=== PATIENT | female | born 1955 | race Caucasian/White ===

== ENCOUNTER → 2018-12-28 | Outpatient (CLI) | payer OTHER ==
--- NOTE | 2018-12-28 14:39 | Diagnostic Imaging Report ---
EXAM: CHEST 2 VIEWS, PA and lateral DATE: 12/28/2018 Time stamp on exam: 12:49 PM INDICATION: Shortness of breath COMPARISON: None FINDINGS: LINES/TUBES: None LUNGS: No consolidations or edema. PLEURA: No effusions or pneumothorax. HEART AND MEDIASTINUM: Normal size and contour. Calcification within the aortic knob. BONES AND SOFT TISSUES: No acute findings. Mild scoliosis. IMPRESSION: No acute thoracic abnormality. Signed by: Dr. Raza Rubio DO on 12/28/2018 2:35 PM
== END ==
LOC: RAD 12:32
PROVIDERS: ATTEND Internal Medicine Pulmonary Disease
DX: R06.02 Shortness of breath (principal)
CPT/HCPCS: 71046